=== PATIENT | male | born 1995 | race Two or more races ===

== ENCOUNTER 2024-05-24 22:40 | Inpatient (IN) | payer SELFPAY ==
[~2024-05-24] VITALS: Ht 172.7 cm; Wt 91.2 kg
[2024-05-24 22:40] VITALS: PULSE 116; RESP 20
[2024-05-24] MEDS ORDERED: PROPOFOL 10MG/ML 100ML 100 ML IV ONE (22:45)
[2024-05-24 23:12] LABS: BASOPHILS % 0.8 % (0.0-2.0); EOSINOPHILS % 1.4 % (0.0-5.0); HEMATOCRIT. 44.6 % (42.0-52.0); HEMOGLOBIN. 15.1 g/dL (14.0-18.0); LYMPHOCYTES % 21.8 % (20.0-50.0); MEAN CORPUSCULAR HEMOGLOBIN 31.6 pg (28.0-32.0); MEAN CORPUSCULAR HGB CONC 33.9 g/dL (31.0-37.0); MEAN PLATELET VOLUME 7.2 fl (7.4-10.4); MONOCYTES % 4.8 % (2.0-8.0); NEUTROPHILS % 71.2 % (40.0-76.0); PLATELET 369 x1000/uL (130-400); RED BLOOD CELL COUNT 4.79 mill/uL (4.7-6.1); RED CELL DISTRIBUTION WIDTH 13.4 % (11.6-14.6); WHITE BLOOD COUNT 7.4 x1000/uL (4.5-11.0)
[2024-05-24] MEDS: PANTOPRAZOLE SODIUM 40 MG/VIAL IV ONE (23:16)
[2024-05-24] MEDS: ONDANSETRON HCL 4MG/2ML INJ IV STA (23:16)
[2024-05-24] MEDS: SODIUM CHLORIDE 0.9% 1,000 ML IV ONE (23:16)
[2024-05-24 23:20] LABS: CHLORIDE 109 mEq/L (98-107); POTASSIUM 4.4 mEq/L (3.5-5.1); SODIUM 144 mEq/L (136-145)
[2024-05-24 23:21] LABS: CALCIUM 8.5 mg/dL (8.7-10.4); CARBON DIOXIDE 26 mEq/L (21-32)
[2024-05-24 23:26] LABS: ETHANOL BLOOD 284 mg/dL (<10); GLUCOSE 102 mg/dL (70-105); LACTIC ACID 3.2 mmol/L (0.4-2.0); UREA NITROGEN BLOOD 12 mg/dL (9-23)
[2024-05-24 23:27] LABS: AMMONIA < 17 uMol/L (<32); TROPONIN I HIGH SENSITIVITY 7 ng/L (3.0-53)
[2024-05-24 23:28] LABS: ACETAMINOPHEN < 2 ug/mL (10-30); CREATINE KINASE 324 IU/L (46-171)
[2024-05-24 23:30] LABS: PROTHROMBIN TIME 10.8 sec (9.6-11.0)
[2024-05-24] MEDS ORDERED: PROPOFOL 10MG/ML 100ML 100 ML IV PRN (23:30)
[2024-05-24] MEDS ORDERED: ONDANSETRON HCL 4MG/2ML INJ IV ONE (23:45)
[2024-05-24] MEDS ORDERED: MIDAZOLAM HCL 100 MG in DEXT 5% WATER 80 ML IV ONE (23:45)
[2024-05-24 23:57] LABS: BG BASE EXCESS -6.3 mmol/L (-2.0-2.0); BG CARBOXYHEMOGLOBIN 0.3 % (0.5-1.5); BG DEOXYHEMOGLOBIN 0.4 % (0.0-5.0); BG FRACTION INSPIRED OXYGEN 100; BG HCO3 ACT 20.7 mmol/L (22.0-26.0); BG METHEMOGLOBIN 0.4 % (0.0-1.5); BG OXYGEN SATURATION 99.6 % (92.0-98.5); BG OXYHEMOGLOBIN 98.9 % (94.0-97.0); BG PCO2 46.5 mmHg (35.0-45.0); BG PH 7.266 (7.350-7.450); BG PO2 480.9 mmHg (75.0-100.0); BG SAMPLE SITE RIGHT RADIAL; BG TOTAL HEMOGLOBIN 15.1 g/dL (12.0-18.0); BG TOTAL RESPIRATORY RATE 20 b/min; BG VENT MODE VENT - AC
[2024-05-25] VITALS (80 sets, daily range): BP systolic 84–156; BP diastolic 50–131; PULSE 74–114; RESP 10–35; TEMP 98.1–99.7; O2SAT 95
[2024-05-25] MEDS: DEXMEDETOMIDINE 400 MCG in SODIUM CHLORIDE 0.9% 100 ML IV PRN (01:01)
[2024-05-25] MEDS: AMPICILLIN SOD/SULBACTAM NA 3 G in SODIUM CHLORIDE 0.9% 100 ML IV SCH (01:07)
[2024-05-25 01:29] LABS: CLARITY URINE CLEAR (CLEAR); COLOR URINE YELLOW (YELLOW); GLUCOSE URINE NEGATIVE (NEGATIVE); KETONES URINE TRACE (NEGATIVE); LEUKOCYTE ESTERASE URINE NEGATIVE (NEGATIVE); NITRITE URINE NEGATIVE (NEGATIVE); OCCULT BLOOD URINE NEGATIVE (NEGATIVE); PH URINE 5.5 (4.5-8.0); PROTEIN URINE NEGATIVE (NEGATIVE); SPECIFIC GRAVITY URINE 1.009 (1.005-1.030); UROBILINOGEN URINE 0.2 E.U./dL (0.2-1.0)
[2024-05-25 01:45] LABS: *AMPHETAMINES SCREEN URINE NEGATIVE (NEGATIVE); *BARBITURATES SCREEN URINE NEGATIVE (NEGATIVE); *BENZODIAZEPINES SCREEN URINE PRESUMPTIVE POSITIVE (NEGATIVE); *COCAINE SCREEN URINE PRESUMPTIVE POSITIVE (NEGATIVE); CANNABINOID URINE SCREEN PRESUMPTIVE POSITIVE (NEGATIVE); ECSTASY MDMA SCREEN URINE NEGATIVE (NEGATIVE); METHADONE URINE SCREEN NEGATIVE (NEGATIVE); OPIATES URINE SCREEN NEGATIVE (NEGATIVE); PHENCYCLIDINE URINE SCREEN NEGATIVE (NEGATIVE)
[2024-05-25] MEDS: DEXMEDETOMIDINE 400 MCG/100 ML 100 ML IV PRN (03:00)
[2024-05-25] MEDS: MIDAZOLAM 100MG/100ML PMX 100 ML IV PRN (03:00)
[2024-05-25] MEDS ORDERED: MIDAZOLAM 100MG/100ML PMX 100 ML IV PRN (05:30)
[2024-05-25 05:47] LABS: CARBON DIOXIDE 23 mEq/L (21-32); CHLORIDE 111 mEq/L (98-107); POTASSIUM 3.8 mEq/L (3.5-5.1); SODIUM 145 mEq/L (136-145)
[2024-05-25 05:53] LABS: GLUCOSE 94 mg/dL (70-105); UREA NITROGEN BLOOD 11 mg/dL (9-23)
[2024-05-25] MEDS ORDERED: NOREPINEPHRINE 8MG/250ML PMX 250 ML IV PRN (06:15)
[2024-05-25 07:04] LABS: BASOPHILS % 0.4 % (0.0-2.0); EOSINOPHILS % 0.5 % (0.0-5.0); HEMATOCRIT. 40.2 % (42.0-52.0); HEMOGLOBIN. 13.1 g/dL (14.0-18.0); LYMPHOCYTES % 8.7 % (20.0-50.0); MEAN CORPUSCULAR HEMOGLOBIN 30.7 pg (28.0-32.0); MEAN CORPUSCULAR HGB CONC 32.7 g/dL (31.0-37.0); MEAN PLATELET VOLUME 7.5 fl (7.4-10.4); MONOCYTES % 6.2 % (2.0-8.0); NEUTROPHILS % 84.2 % (40.0-76.0); PLATELET 336 x1000/uL (130-400); RED BLOOD CELL COUNT 4.27 mill/uL (4.7-6.1); RED CELL DISTRIBUTION WIDTH 13.3 % (11.6-14.6)
[2024-05-25 09:19] LABS: BG BASE EXCESS -3.8 mmol/L (-2.0-2.0); BG CARBOXYHEMOGLOBIN 0.3 % (0.5-1.5); BG DEOXYHEMOGLOBIN 1.5 % (0.0-5.0); BG FRACTION INSPIRED OXYGEN 40; BG HCO3 ACT 19.1 mmol/L (22.0-26.0); BG METHEMOGLOBIN 0.3 % (0.0-1.5); BG OXYGEN SATURATION 98.5 % (92.0-98.5); BG OXYHEMOGLOBIN 97.9 % (94.0-97.0); BG PCO2 29.1 mmHg (35.0-45.0); BG PH 7.435 (7.350-7.450); BG PO2 116.9 mmHg (75.0-100.0); BG SAMPLE SITE RIGHT RADIAL; BG VENT MODE VENT - AC
[2024-05-25] MEDS ORDERED: PANTOPRAZOLE 80 MG in SODIUM CHLORIDE 0.9% 100 ML IV ONE (09:30)
[2024-05-25] MEDS: PANTOPRAZOLE SODIUM 40 MG/VIAL IV SCH (09:32)
[2024-05-25] MEDS: SODIUM CHLORIDE 0.9% 1,000 ML IV SCH (09:41)
[2024-05-25] MEDS: SODIUM CHLORIDE 0.9% 1,000 ML IV ONE (09:41)
[2024-05-25] MEDS ORDERED: PHENOBARBITAL 60MG TABLET PO PRN (09:45)
[2024-05-25] MEDS ORDERED: PHENOBARBITAL 30 MG TABLET PO PRN ×2 (09:45)
[2024-05-25] MEDS ORDERED: LORAZEPAM 1MG TABLET PO PRN ×3 (09:45)
[2024-05-25] MEDS ORDERED: CHLORDIAZEPOXIDE 25MG CAPSULE PO PRN ×3 (09:45)
[2024-05-25] MEDS ORDERED: ONDANSETRON HCL 4MG/2ML INJ IV PRN (10:00)
[2024-05-25] MEDS ORDERED: IPRATROPIUM/ALBUTEROL 0.5-3(2.5)MG/3ML NEB HHN PRN ×2 (10:00→16:15)
[2024-05-25] MEDS ORDERED: ACETAMINOPHEN 325MG TABLET PO PRN ×2 (10:00)
[2024-05-25] MEDS ORDERED: DOCUSATE SODIUM 100MG CAPSULE PO PRN (10:00)
[2024-05-25] MEDS ORDERED: LORAZEPAM 2MG/ML INJ IV PRN ×3 (10:45)
[2024-05-25] MEDS: MULTIVITAMINS,THER W-MINERALS TABLET PO SCH (11:05)
[2024-05-25] MEDS: FOLIC ACID 1MG TABLET PO SCH (11:05)
[2024-05-25] MEDS: LEVETIRACETAM 500MG PREMIX 100 ML IV SCH (11:05)
[2024-05-25] MEDS: THIAMINE HCL 100 MG/1 ML 2ML VIAL IM SCH (11:09)
[2024-05-25 11:22] LABS: ALANINE AMINOTRANSFERASE 24 IU/L (10-49); ALBUMIN 4.2 g/dL (3.2-4.8); ASPARTATE AMINOTRANSFERASE 27 IU/L (<34); BILIRUBIN DIRECT 0.1 mg/dL (<=3.0); BILIRUBIN TOTAL 0.4 mg/dL (0.1-1.0); PROTEIN TOTAL 6.4 g/dL (6.0-8.3)
[2024-05-25] MEDS: FOLIC ACID 1 MG, THIAMINE HCL 100 MG, MVI, ADULT NO.1 10 ML in DEXTROSE 5% WATER 1,000 ML IV ONE (12:50)
[2024-05-25 14:25] LABS: BG BASE EXCESS 1.8 mmol/L (-2.0-2.0); BG CARBOXYHEMOGLOBIN 0.3 % (0.5-1.5); BG DEOXYHEMOGLOBIN 1.7 % (0.0-5.0); BG FRACTION INSPIRED OXYGEN 40; BG HCO3 ACT 25.7 mmol/L (22.0-26.0); BG METHEMOGLOBIN 0.3 % (0.0-1.5); BG OXYGEN SATURATION 98.3 % (92.0-98.5); BG OXYHEMOGLOBIN 97.7 % (94.0-97.0); BG PH 7.448 (7.350-7.450); BG PO2 118.7 mmHg (75.0-100.0); BG SAMPLE SITE RIGHT RADIAL; BG TOTAL HEMOGLOBIN 12.8 g/dL (12.0-18.0); BG VENT MODE VENT - CPAP
[2024-05-25 16:13] LABS: CREATINE KINASE MB FRACTION 2.4 ng/mL (0.5-3.6)
[2024-05-25] MEDS: CEFTRIAXONE 1GM/50ML 50 ML IV SCH (17:49)
[2024-05-25] MEDS: IPRATROPIUM/ALBUTEROL 0.5-3(2.5)MG/3ML NEB HHN SCH (20:49)
[2024-05-25 22:33] LABS: CREATINE KINASE MB FRACTION 1.3 ng/mL (0.5-3.6)
[2024-05-26] VITALS (26 sets, daily range): BP systolic 109–148; BP diastolic 59–91; PULSE 81–109; RESP 18–33; TEMP 98.2–98.6; O2SAT 93–97
[2024-05-26 05:40] LABS: BASOPHILS % 0.5 % (0.0-2.0); EOSINOPHILS % 2.8 % (0.0-5.0); HEMATOCRIT. 32.3 % (42.0-52.0); LYMPHOCYTES % 12.5 % (20.0-50.0); MEAN CORPUSCULAR HEMOGLOBIN 31.1 pg (28.0-32.0); MEAN CORPUSCULAR HGB CONC 34.1 g/dL (31.0-37.0); MEAN CORPUSCULAR VOLUME 91.4 fL (80.0-94.0); MONOCYTES % 6.1 % (2.0-8.0); NEUTROPHILS % 78.1 % (40.0-76.0); PLATELET 287 x1000/uL (130-400); RED BLOOD CELL COUNT 3.53 mill/uL (4.7-6.1); RED CELL DISTRIBUTION WIDTH 13.1 % (11.6-14.6); WHITE BLOOD COUNT 12.3 x1000/uL (4.5-11.0)
[2024-05-26 05:46] LABS: CHLORIDE 106 mEq/L (98-107); SODIUM 139 mEq/L (136-145)
[2024-05-26 05:48] LABS: CARBON DIOXIDE 24 mEq/L (21-32)
[2024-05-26 05:49] LABS: CALCIUM 8.4 mg/dL (8.7-10.4)
[2024-05-26 05:53] LABS: CREATININE 0.9 mg/dL (0.6-1.3); GLUCOSE 95 mg/dL (70-105)
[2024-05-26 05:54] LABS: UREA NITROGEN BLOOD 9 mg/dL (9-23)
[2024-05-26 05:55] LABS: ALANINE AMINOTRANSFERASE 16 IU/L (10-49); ALBUMIN 3.8 g/dL (3.2-4.8); ASPARTATE AMINOTRANSFERASE 19 IU/L (<34)
[2024-05-26 05:56] LABS: BILIRUBIN DIRECT 0.3 mg/dL (<=3.0); BILIRUBIN TOTAL 1.1 mg/dL (0.1-1.0); PROTEIN TOTAL 5.7 g/dL (6.0-8.3)
[2024-05-26] MEDS: POTASSIUM CHLORIDE 20MEQ TABLET SR PO SCH ×2 (08:33→08:36)
[2024-05-26] MEDS: MAGNESIUM 1 G PREMIX 100 ML IV ONE (08:37)
[2024-05-26] MEDS ORDERED: THIAMINE HCL 100MG TABLET PO SCH (09:00)
[2024-05-26] MEDS: POTASSIUM CHLORIDE 20MEQ TABLET SR PO NR (10:00)
[2024-05-26] MEDS ORDERED: AMOX1TAB16 MT (17:21)
[2024-05-26] MEDS ORDERED: POTA-354 PO (17:21)
[2024-05-27] MEDS ORDERED: THIAMINE HCL 100MG TABLET PO SCH (09:00)
[2024-05-28] MEDS ORDERED: THIAMINE HCL 100MG TABLET PO SCH (09:00)
== END 2024-05-26 14:00 | disposition home or self-care (01) | DRG 812 ==
LOC: ER 22:47 → MICUNO 05-25 01:22
PROVIDERS: ADMIT Internal Medicine; ATTEND Internal Medicine
PROC: 5A09357 Assistance with Respiratory Ventilation, Less than 24 Consecutive Hours, Continuous Positive Airway Pressure (ICD-10-PCS; principal; 2024-05-25)
PROC: 5A1935Z Respiratory Ventilation, Less than 24 Consecutive Hours (ICD-10-PCS; 2024-05-25)
DX: T50.991A Poisoning by other drugs, medicaments and biological substances, accidental (unintentional), initial encounter (principal); J96.01 Acute respiratory failure with hypoxia; J69.0 Pneumonitis due to inhalation of food and vomit; R57.9 Shock, unspecified; G92.8 Other toxic encephalopathy; K92.0 Hematemesis; M62.82 Rhabdomyolysis; F14.129 Cocaine abuse with intoxication, unspecified; F17.210 Nicotine dependence, cigarettes, uncomplicated; F10.129 Alcohol abuse with intoxication, unspecified; Y90.9 Presence of alcohol in blood, level not specified; E87.6 Hypokalemia; F15.10 Other stimulant abuse, uncomplicated; F12.10 Cannabis abuse, uncomplicated; F13.10 Sedative, hypnotic or anxiolytic abuse, uncomplicated; Y92.89 Other specified places as the place of occurrence of the external cause
CPT/HCPCS: 36415; 36600; 71045; 80048; 80076; 80305; 80307; 80320; 80329; 81003; 82140; 82375; 82550; 82553; 82805; 83605; 83735; 84145; 84484; 85025; 85379; 86850; 86900; 87070; 93306; 94003; 94640; 99291; J0295; J0696; J1953; J2250; J2405; J2470; J2704; J3411; J3475; J3490; J7030; J7050; J7060; J7070; Q9957; G0480